=== PATIENT | female | born 2000 | race American Indian/Alaskan Native ===

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

== ENCOUNTER 2022-01-29 13:41 | Outpatient (CLI) | payer SELFPAY ==
[2022-01-29] MEDS ORDERED: LACTATED RINGERS 1,000 ML IV ONE (14:24)
[2022-01-29 15:06] LABS: Bilirubin,Urine NEG (Negative); Blood,Urine NEG (Negative); Color,Urine Amber (Yellow); Mucus,Urine 2+ /HPF
[2022-01-29] MEDS ORDERED: LACTATED RINGERS 1,000 ML ONE (17:25)
--- NOTE | 2022-01-29 18:13 | History and Physical Report ---
History of Present Illness Date of examination: 01/29/22 Date of admission: 01/29/2022 Chief complaint: hurting in abdomen for past 3 days History of present illness: No care. This complicatd by history of previous csection. Close space . Past History Past Medical History: no pertinent history Past Surgical History: section (non reasuring heart tone) Social history: single, lives with family - Obstetrical History : 2 Para: 1 Hx # Term Pregnancies: 1 Number of Pregnancies: 0 Spontaneous Abortions: 0 Induced : 0 Number of Living Children: 1 #1 year: Method of Delivery: Gestational age at delivery: 41 Medications and Allergies Allergies Allergy/AdvReac Type Severity Reaction Status Date / Time No Known Allergies Allergy Verified 09/17/21 17:21 Home Medications Medication Instructions Recorded Confirmed Last Taken Type HYDROcodone/APAP 5-325 [[place] 1 each PO Q6H PRN #30 tablet 03/30/21 Unknown Rx 5-325 mg TAB] Ibuprofen [Motrin 800 MG tab] 800 mg PO Q8H PRN #30 tablet 03/30/21 Unknown Rx Acetaminophen [Tylenol] 500 mg PO Q6HR PRN #30 tablet 10/29/21 Unknown Rx Ondansetron [Zofran Odt] 4 mg PO Q8HR PRN #15 tab.rapdis 10/29/21 Unknown Rx Vit-Fe Fumar-FA [ 1 tab PO QDAY #30 tablet 10/29/21 Unknown Rx Vitamin] - Vital Signs Vital signs: Vital Signs Pulse BP 100 H 106/57 01/29/22 14:18 01/29/22 14:18 Temp Pulse Resp BP Pulse Ox 98.5 F 85 20 124/60 96 01/29/22 14:26 01/29/22 18:06 01/29/22 14:26 01/29/22 17:42 01/29/22 18:06 - Physical Exam Breasts: Positive: deferred Cardiovascular: Regular rate Lungs: Positive: Clear to auscultation Abdomen: Positive: normal appearance, soft, normal bowel sounds Genitourinary (Female): Positive: normal external genitalia, normal perenium Vulva: both: normal Vagina: Positive: discharge (pale yellow, thick) Uterus: Positive: enlarged (gravid), normal contour Anus/Rectum: Positive: normal perianal skin Extremities: Positive: normal - Obstetrical FHR: category 1 Uterine Contraction Monitor Mode: External Cervical Dilatation: 0 Cervical Effacement Percentage: 30 station: OOP Uterine Contraction Frequency (min): irritability/irregul Uterine Contraction Duration: mild Results Abnormal lab results 01/29/22 Range/Units Unknown U Epithel Cells (Auto) 16.0 H (0-13.0) /HPF All other labs normal. Assessment and Plan A: IUP@ no care cat 1 tracing with irritability and some irregular contractions P: continuous /contraction monitoring fluid bolus Vaginal swab/exam ultrasound labs
[2022-01-29 18:49] LABS: Hematocrit 30.8 % (30.3-42.9); Hemoglobin 9.9 gm/dl (10.1-14.3); Mean Corpuscular HGB Conc 32 % (30-34); Mean Corpuscular Volume 84 fl (79-97); Platelet Count 263 K/mm3 (140-440); Red Blood Count 3.69 M/mm3 (3.65-5.03); Red Cell Distribution Width 14.7 % (13.2-15.2)
[2022-01-29] MEDS ORDERED: TERBUTALINE 1 MG/1 ML INJ SUB-Q ONE (20:10)
[2022-01-29 21:47] VITALS: BP 110/57
--- NOTE | 2022-01-29 22:49 | Ultrasound Report ---
ULTRASOUND OBSTETRIC COMPLETE INDICATION / CLINICAL INFORMATION: no care, anatomy,cervical length. Clinical Gestational Age (GA) in weeks, days: 27 weeks 6 days TECHNIQUE: Transabdominal. COMPARISON: None available. FINDINGS: NUMBER: Single PRESENTATION: cephalic PLACENTA: anterior and free of the os. MATERNAL ADNEXA: No significant abnormality. AMNIOTIC FLUID VOLUME: normal AMNIOTIC FLUID INDEX (KALIE) in cm (if measured): 10.4 ANATOMY: organs (including the bladder, stomach, kidneys, heart, umbilical cord, diaphragm, cord inserti on, spine and intracranial structures) are visualized and show no significant abnormality with the fo llowing exception(s): Four-chamber heart suboptimally imaged. MEASUREMENTS: - Biparietal Diameter = 6.8 cm = 27 weeks 2 days - Head Circumference = 23.6 cm = 25 weeks 5 days - Abdominal Circumference = 23.7 cm = 28 weeks 0 days - Femur Length = 5.2 cm = 27 weeks 6 days - Estimated Weight (in grams, if calculated): 1115 - Heart Rate (beats per minute): 153 ADDITIONAL FINDINGS: Cervix measures 3 cm. PERCENTILE ESTIMATED WEIGHT (if calculated): 32 AVERAGE ULTRASOUND AGE (AUA) in weeks, days = 27 weeks 2 days IMPRESSION: 1. Single intrauterine with AUA of 27 weeks 2 days. 2. 4 chamber heart is suboptimally imaged. Continued follow-up is suggested. No significant anatomic abnormality. 3. Cervical length measures 3 cm. Signer Name: Carson Grant MD Signed: 01/29/2022 10:45 PM Workstation Name: [id number]
== END 2022-01-29 21:50 | disposition home or self-care (01) ==
LOC: TRG 13:41 → APU 13:44 → TRG 21:50
PROVIDERS: ATTEND Obstetrics & Gynecology
DX: O62.9 Abnormality of forces of labor, unspecified (principal); O26.892 Other specified pregnancy related conditions, second trimester; M54.50 Low back pain, unspecified; R42 Dizziness and giddiness; R10.9 Unspecified abdominal pain; Z3A.27 27 weeks gestation of pregnancy
CPT/HCPCS: 36415; 59025; 76805; 81001; 85027; 86592; 86706; 86762; 86850; 86900; 86901; 87210; 87806; 96360; 96372; J3105; J7120; 87591

== ENCOUNTER 2022-02-28 05:47 | Outpatient (CLI) | payer SELFPAY ==
[2022-02-28] MEDS ORDERED: LACTATED RINGERS 500 ML IV ONE (06:04)
[2022-02-28 06:07] VITALS: BP 103/63
[2022-02-28] MEDS ORDERED: LACTATED RINGERS 1,000 ML ONE (06:11)
[2022-02-28 07:02] LABS: Bilirubin,Urine NEG (Negative); Blood,Urine NEG (Negative); Color,Urine Yellow (Yellow); Mucus,Urine 1+ /HPF; Protein,Urine <15 mg/dL mg/dL (Negative)
--- NOTE | 2022-02-28 08:41 | Ultrasound Report ---
LIMITED OBSTETRICAL ULTRASOUND INDICATION: , weight and fluid evaluation COMPARISON: 01/29/2022 FINDINGS: Intrauterine single is again seen in a cephalic position. Anterior placenta is fr ee of internal cervical os. Cardiac activity was documented at 156 bpm. Amniotic fluid volume appears appropriate and KALIE is within normal limits at 17.0 cm. Dating was performed with estimated gestatio nal age of 31 weeks 6 days which corresponds to previous sonographic dating and clinical dating. No d iscrepancy is seen between head and body measurements. BIOPHYSICAL PROFILE breathing movements: 2/2 movements: 2/2 posture and tone tone: 2/2 Qualitative amniotic fluid volume: 2/2 Total score: 8/8, within normal limits Signer Name: Torito Gaitan MD Signed: 02/28/2022 8:37 AM Workstation Name: [id number]
== END 2022-02-28 09:20 | disposition home or self-care (01) ==
LOC: TRG 05:47 → APU 05:49 → TRG 09:20
PROVIDERS: ATTEND Obstetrics & Gynecology
DX: O62.9 Abnormality of forces of labor, unspecified (principal); O99.613 Diseases of the digestive system complicating pregnancy, third trimester; K21.9 Gastro-esophageal reflux disease without esophagitis; O99.213 Obesity complicating pregnancy, third trimester; E66.9 Obesity, unspecified; O99.013 Anemia complicating pregnancy, third trimester; D64.9 Anemia, unspecified; Z3A.32 32 weeks gestation of pregnancy
CPT/HCPCS: 36415; 59025; 76816; 76819; 81001; 82731; 96360